=== PATIENT | male | born 1965 | race Caucasian/White ===

== ENCOUNTER 2022-07-08 06:21 | Inpatient (IN) | payer OTHER ==
[~2022-07-08] VITALS: Ht 177.8 cm; Wt 100.5 kg
[2022-07-08] MEDS ORDERED: LIDOCAINE 2% JELLY 11ml (GLYDO) ONE (06:40)
[2022-07-08] MEDS ORDERED: ceFAZolin 1GM/50ML 100 ML IV ONE (06:49)
[2022-07-08] MEDS ORDERED: fentaNYL CITRATE 100 MCG/2 ML VL ONE ×2 (07:10→07:11)
[2022-07-08] MEDS ORDERED: SODIUM CHLORIDE LOCK 10 ML ONE (07:10)
[2022-07-08] MEDS ORDERED: PROPOFOL 10 MG/ML 20 ML IV ONE ×4 (07:10→10:44)
[2022-07-08] MEDS ORDERED: ROCURONIUM 10MG/ML 10ML VIAL IV ONE (07:10)
[2022-07-08] MEDS ORDERED: GLYCOPYRROLATE 0.2 MG/ML 1ML VIAL ONE (07:10)
[2022-07-08] MEDS ORDERED: NEOSTIGMINE 1 MG/ML INJ (10mg/10ML VIAL) ONE (07:10)
[2022-07-08] MEDS ORDERED: HYDROmorphone HCL 2 MG/ML VL/or syr ONE (07:10)
[2022-07-08] MEDS ORDERED: ONDANSETRON HCL 4 MG/2 ML VIAL ONE (07:10)
[2022-07-08] MEDS ORDERED: MIDAZOLAM HCL 2MG/2ML 2ml VIAL (1mg/ml) ONE (07:10)
[2022-07-08] MEDS ORDERED: DexAMETHasone SOD PHOS 10MG/1ML VIAL INJ ONE (07:10)
[2022-07-08] MEDS ORDERED: ceFAZolin 1GM/50ML 50 ML IV SCH (12:00)
[2022-07-08] MEDS ORDERED: NITROGLYCERIN 0.4 MG SL TAB SL PRN (12:00)
[2022-07-08] MEDS ORDERED: ONDANSETRON HCL 4 MG/2 ML VIAL IV PRN (12:00)
[2022-07-08] MEDS ORDERED: MORPHINE SULFATE INJ 2 MG/ml SYRG IV PRN ×2 (12:00)
[2022-07-08] MEDS ORDERED: ACETAMINOPHEN 325 MG TAB PO PRN (12:00)
[2022-07-08] MEDS ORDERED: MILK OF MAGNESIA 30ML SUSP PO PRN (12:00)
[2022-07-08] MEDS ORDERED: HYDROcodone-ACET 10/325MG TAB PO PRN (12:00)
[2022-07-08] MEDS ORDERED: NALOXONE HCL 0.4 MG/ML VIAL ONE (12:14)
[2022-07-08] MEDS ORDERED: hydrALAZINE HCL 20 MG/ML VL ONE (12:14)
[2022-07-08 14:44] VITALS: BP 123/77
[2022-07-08] MEDS: ceFAZolin 1GM/50ML 50 ML IV SCH ×2 (16:14→23:20)
[2022-07-08] MEDS: CYCLOBENZAPRINE HCL 10 MG TAB PO SCH ×2 (16:16→21:24)
[2022-07-08 17:00] VITALS: BP 134/80
[2022-07-08] MEDS: D5W/SOD CHLO 0.9% 1,000 ML IV SCH ×2 (17:30→21:55)
[2022-07-08] MEDS ORDERED: DexAMETHasone SOD PHOS 10MG/1ML VIAL INJ IM ONE (21:00)
[2022-07-08] MEDS: DOCUSATE SOD 100 MG CAP PO SCH (21:24)
[2022-07-08 22:00] VITALS: BP 155/93
[2022-07-09] MEDS: THROAT LOZENGES(CEPASTAT) MT PRN ×2 (00:56→14:25)
[2022-07-09 05:00] VITALS: BP 131/83
[2022-07-09] MEDS: CYCLOBENZAPRINE HCL 10 MG TAB PO SCH ×2 (05:49→14:23)
[2022-07-09] MEDS: D5W/SOD CHLO 0.9% 1,000 ML IV SCH ×2 (05:55→16:52)
[2022-07-09 09:00] VITALS: BP 133/77
[2022-07-09] MEDS: DOCUSATE SOD 100 MG CAP PO SCH (10:02)
[2022-07-09 13:00] VITALS: BP 132/72
[2022-07-09 16:53] VITALS: BP 128/81
[2022-07-09 17:34] VITALS: BP 128/81
== END 2022-07-09 18:30 | disposition home or self-care (01) | DRG 473 ==
LOC: SUR 06:21 → TELE 11:55 → TELE-WESTW 14:39
PROVIDERS: ADMIT Orthopaedic Surgery; ATTEND Orthopaedic Surgery
PROC: 0RB30ZZ Excision of Cervical Vertebral Disc, Open Approach (ICD-10-PCS; 2022-07-08)
PROC: 00NW0ZZ Release Cervical Spinal Cord, Open Approach (ICD-10-PCS; 2022-07-08)
PROC: 01N10ZZ Release Cervical Nerve, Open Approach (ICD-10-PCS; 2022-07-08)
PROC: 0RG20K0 Fusion of 2 or more Cervical Vertebral Joints with Nonautologous Tissue Substitute, Anterior Approach, Anterior Column, Open Approach (ICD-10-PCS; principal; 2022-07-08 07:39)
DX: M48.02 Spinal stenosis, cervical region (principal); M19.90 Unspecified osteoarthritis, unspecified site; M50.10 Cervical disc disorder with radiculopathy, unspecified cervical region; Z20.822 Contact with and (suspected) exposure to COVID-19
CPT/HCPCS: 72040; 76000; 86850; 86900; 86901; G0378; J0690; J1100; J2250; J2405; J2704; J7042